=== PATIENT | female | born 1975 | race Caucasian/White ===

== ENCOUNTER 2017-01-24 16:35 | Emergency (ER) | payer BC ==
[2017-01-24] MEDS ORDERED: LORazepam 2 MG/ML MDV ONE (16:41)
[2017-01-24] MEDS ORDERED: LORazepam 2 MG/ML MDV IVPUSH STA (16:48)
--- NOTE | 2017-01-24 17:13 | EDM.PDOC ---
[id number] 16:35 Source: Reports: Patient, Family History Limitations: Reports: Other (anxious) - History of Present Illness INITIAL COMMENTS - FREE TEXT/NARRATIVE: 41 years old w f with a h/o of "walking pneumonia", anxiety; she was on cipro, last dose today. She was seen at her clinic today and a CT Chest was ordered at the clinic for which the pt came to RAD department for an angiogram chest to be done. 2 weeks ago, all her labs were "normal". While the was at the RAD department, she suddenly was stating shaking, uncoordinated, diffuse. Pt was receiving a Duoneb at the clinic UTILIZATION MANAGEMENT MANAGER to the ed. Pt was hyperventilating. Earlier, she stated to have left sided CP which subsided UTILIZATION MANAGEMENT MANAGER. No N/V/D Her vitals were nl on arrival. Symptom Onset Date: 01/24/17 Symptom Onset Time: 16:00 Timing/Duration: Reports: Hour(s): Location (Neuro Complaint): Reports: generalized (shaking) Quality (Neuro Complaint): Reports: tingling Severity: moderate Improves with: Reports: Other (calm her down) Worsens with: Reports: Breathing, Medication - Related Data Allergies/ADRs: Allergies Allergy/AdvReac Type Severity Reaction Status Date / Time No Known Allergies Allergy Verified 01/24/17 17:33 Home Meds: Home Meds Fluticasone Propionate [Flovent] 2 puff INH DAILY 06/03/15 [History] LORazepam 0.5 mg PO BID PRN 06/03/15 [History] Olopatadine [Pataday 0.2% Ophth Soln] 1 drop EYEBOTH BEDTIME 06/03/15 [History] Calcium Carbonate/Vitamin D3 [Calcium 600 + Vit D Softgel] 1 each PO BID [History] Escitalopram [Lexapro] 10 mg PO BID 01/24/17 [History] Social & Family History - Tobacco Use Smoking Status *Q: Never Smoker - Recreational Drug Use Recreational Drug Use: No ED ROS GENERAL - Review of Systems Review Of Systems: See Below Constitutional: Reports: other (anxious) HEENT: Reports: No symptoms Respiratory: Reports: Shortness of Breath Cardiovascular: Reports: No symptoms Endocrine: Reports: no symptoms GI/Abdominal: Reports: No symptoms : Reports: no symptoms Musculoskeletal: Reports: no symptoms Skin: Reports: no symptoms Neurological: Reports: No Symptoms Psychiatric: Reports: No symptoms Hematologic/Lymphatic: Reports: no symptoms Immunologic: Reports: no symptoms ED EXAM, NEURO - Physical Exam Exam: See Below Exam Limited By: Respiratory distress (anxiety) General Appearance: alert, anxious, mild distress Eye Exam: bilateral eye: abnormal EOM Ears: normal external exam, normal canal Nose: normal inspection Throat/Mouth: Normal inspection, Normal lips, Normal teeth, Normal gums, Normal oropharynx, Normal voice, No airway compromise Head Exam: atraumatic, normocephalic Neck: normal inspection, supple, non-tender, full range of motion Respiratory/Chest: lungs clear, normal breath sounds, no accessory muscle use, chest non-tender Cardiovascular: normal peripheral pulses, regular rate, rhythm, no edema, no gallop, no JVD GI/Abdominal: normal bowel sounds, soft, non tender, no organomegaly, no distention, no abnormal bruit (Female) Exam: Deferred Rectal (Female) Exam: Deferred Neurological: alert, normal mood/affect, normal dorsiflexion, CN II-XII intact Back Exam: normal inspection, full range of motion Extremities: normal inspection, normal range of motion, non-tender, no pedal edema Psychiatric: anxious Skin Exam: Warm, Dry, Intact, Normal color, No rash EKG INTERPRETATION EKG Date: 01/24/17 Time: 17:25 Rhythm: NSR Rate (beats/min): 66 [place]: normal P-wave: present QRS: normal ST-T: normal QT: normal Comparison: NA - no prior EKG Course - Vital Signs Text/Narrative:: 41 years old w f with a h/o of "walking pneumonia", anxiety; she was on cipro, last dose today. She was seen at her clinic today and a CT Chest was ordered at the clinic for which the pt came to RAD department for an angiogram chest to be done. 2 weeks ago, all her labs were "normal". While the was at the RAD department, she suddenly was stating shaking, uncoordinated, diffuse. Pt was receiving a Duoneb at the clinic UTILIZATION MANAGEMENT MANAGER to the ed. Pt was hyperventilating. Earlier, she stated to have left sided CP which subsided UTILIZATION MANAGEMENT MANAGER. No N/V/D Her vitals were nl on arrival. PE: anxious, hyperventilating Labs: Pos for opiates. D Dimer, Cardiac W/U was neg. Imaging: CT chest R/O DVT, ordered at the [facility], was neg for PE. it showed mild gen congestion, nonspecific, however, as per Dr. Vaughan, official report is pending Impression: gen lung infiltrate, mild, cause not determined. Anxiety, pos UDS for opioids. Tx: At[place]ovan Reexam: Improved Plan: D/C with instructions. Last Recorded V/S: Last Vital Signs Temp 36.4 C 01/24/17 16:35 Pulse 74 01/24/17 18:40 Resp 16 01/24/17 18:40 BP 98/53 L 01/24/17 18:40 Pulse Ox 96 01/24/17 18:40 - Orders/Labs/Meds Labs: Laboratory Tests 01/24/17 01/24/17 01/24/17 Range/Units 16:55 16:55 16:55 WBC 8.9 (4.5-12.0) X10-3/uL RBC 4.84 (3.23-5.20) x10(6)uL Hgb 14.0 (11.5-15.5) g/dL Hct 41.7 (30.0-51.3) % MCV 86.2 (80-96) fL MCH 28.9 (27.7-33.6) pg MCHC 33.6 (32.2-35.4) g/dL RDW 11.5 (11.5-15.5) % Plt Count 309 (125-369) X10(3)uL MPV 8.5 (7.4-10.4) fL Neut % (Auto) 47.4 (46-82) % Lymph % (Auto) 45.1 H (13-37) % [place] % (Auto) 5.5 (4-12) % Eos % (Auto) 2 (1.0-5.0) % Baso % (Auto) 1 (0-2) % Neut # (Auto) 4.3 (1.6-8.3) # Lymph # (Auto) 4.0 (0.6-5.0) # [place] # (Auto) 0.5 (0.0-1.3) # Eos # (Auto) 0.1 (0.0-0.8) # Baso # (Auto) 0.0 (0.0-0.2) # D-Dimer, Quantitative (100-400) ng/mL Sodium 139 (135-145) mmol/L Potassium 3.5 (3.5-5.3) mmol/L Chloride 105 (100-110) mmol/L Carbon Dioxide 19 L (23-29) mmol/L BUN 17 (5-20) mg/dL Creatinine 0.9 (0.6-1.3) mg/dL Est Cr Clr Drug Dosing 82.14 mL/min Estimated GFR (MDRD) > 60 (>60) BUN/Creatinine Ratio 18.9 (9-20) Glucose 98 (80-116) mg/dL Calcium 9.0 (8.6-10.2) mg/dL Creatine Kinase (60-160) IU/L B-Natriuretic Peptide 6 (0-100) pg/mL TSH, Ultra Sensitive (0.4-5.5) nlU/mL Urine Color (YELLOW) Urine Appearance (CLEAR) Urine pH (5.0-6.5) Ur Specific [place] (1.010-1.025) Urine Protein (NEGATIVE) mg/dL Urine Glucose (UA) (NEGATIVE) mg/dL Urine Ketones (NEGATIVE) mg/dL Urine Occult Blood (NEGATIVE) Urine Nitrite (NEGATIVE) Urine Bilirubin (NEGATIVE) Urine Urobilinogen (NEGATIVE) mg/dL Ur Leukocyte Esterase (NEGATIVE) Urine RBC (0) Urine WBC (0) Ur Squamous Epith Cells (NS,R,O) Urine Bacteria (NS) Urine HCG, Qual (NEGATIVE) Urine Opiates Screen (NEGATIVE) Ur Oxycodone Screen (NEGATIVE) Ur Propoxyphene Screen (NEGATIVE) Ur Barbituates Screen (NEGATIVE) Ur Tricyclics Screen (NEGATIVE) Ur Phencyclidine Scrn (NEGATIVE) Ur Amphetamine Screen (NEGATIVE) Urine MDMA Screen (NEGATIVE) U Benzodiazepines Scrn (NEGATIVE) U Cocaine Metab Screen (NEGATIVE) U Marijuana (THC) Screen (NEGATIVE) Ethyl Alcohol (<0.01) % 01/24/17 01/24/17 01/24/17 Range/Units 16:55 16:55 16:55 WBC (4.5-12.0) X10-3/uL RBC (3.23-5.20) x10(6)uL Hgb (11.5-15.5) g/dL Hct (30.0-51.3) % MCV (80-96) fL MCH (27.7-33.6) pg MCHC (32.2-35.4) g/dL RDW (11.5-15.5) % Plt Count (125-369) X10(3)uL MPV (7.4-10.4) fL Neut % (Auto) (46-82) % Lymph % (Auto) (13-37) % [place] % (Auto) (4-12) % Eos % (Auto) (1.0-5.0) % Baso % (Auto) (0-2) % Neut # (Auto) (1.6-8.3) # Lymph # (Auto) (0.6-5.0) # [place] # (Auto) (0.0-1.3) # Eos # (Auto) (0.0-0.8) # Baso # (Auto) (0.0-0.2) # D-Dimer, Quantitative < 100 L (100-400) ng/mL Sodium (135-145) mmol/L Potassium (3.5-5.3) mmol/L Chloride (100-110) mmol/L Carbon Dioxide (23-29) mmol/L BUN (5-20) mg/dL Creatinine (0.6-1.3) mg/dL Est Cr Clr Drug Dosing mL/min Estimated GFR (MDRD) (>60) BUN/Creatinine Ratio (9-20) Glucose (80-116) mg/dL Calcium (8.6-10.2) mg/dL Creatine Kinase (60-160) IU/L B-Natriuretic Peptide (0-100) pg/mL TSH, Ultra Sensitive 2.25 (0.4-5.5) nlU/mL Urine Color (YELLOW) Urine Appearance (CLEAR) Urine pH (5.0-6.5) Ur Specific [place] (1.010-1.025) Urine Protein (NEGATIVE) mg/dL Urine Glucose (UA) (NEGATIVE) mg/dL Urine Ketones (NEGATIVE) mg/dL Urine Occult Blood (NEGATIVE) Urine Nitrite (NEGATIVE) Urine Bilirubin (NEGATIVE) Urine Urobilinogen (NEGATIVE) mg/dL Ur Leukocyte Esterase (NEGATIVE) Urine RBC (0) Urine WBC (0) Ur Squamous Epith Cells (NS,R,O) Urine Bacteria (NS) Urine HCG, Qual (NEGATIVE) Urine Opiates Screen (NEGATIVE) Ur Oxycodone Screen (NEGATIVE) Ur Propoxyphene Screen (NEGATIVE) Ur Barbituates Screen (NEGATIVE) Ur Tricyclics Screen (NEGATIVE) Ur Phencyclidine Scrn (NEGATIVE) Ur Amphetamine Screen (NEGATIVE) Urine MDMA Screen (NEGATIVE) U Benzodiazepines Scrn (NEGATIVE) U Cocaine Metab Screen (NEGATIVE) U Marijuana (THC) Screen (NEGATIVE) Ethyl Alcohol < 0.01 (<0.01) % 01/24/17 01/24/17 01/24/17 Range/Units 16:55 17:20 17:20 WBC (4.5-12.0) X10-3/uL RBC (3.23-5.20) x10(6)uL Hgb (11.5-15.5) g/dL Hct (30.0-51.3) % MCV (80-96) fL MCH (27.7-33.6) pg MCHC (32.2-35.4) g/dL RDW (11.5-15.5) % Plt Count (125-369) X10(3)uL MPV (7.4-10.4) fL Neut % (Auto) (46-82) % Lymph % (Auto) (13-37) % [place] % (Auto) (4-12) % Eos % (Auto) (1.0-5.0) % Baso % (Auto) (0-2) % Neut # (Auto) (1.6-8.3) # Lymph # (Auto) (0.6-5.0) # [place] # (Auto) (0.0-1.3) # Eos # (Auto) (0.0-0.8) # Baso # (Auto) (0.0-0.2) # D-Dimer, Quantitative (100-400) ng/mL Sodium (135-145) mmol/L Potassium (3.5-5.3) mmol/L Chloride (100-110) mmol/L Carbon Dioxide (23-29) mmol/L BUN (5-20) mg/dL Creatinine (0.6-1.3) mg/dL Est Cr Clr Drug Dosing mL/min Estimated GFR (MDRD) (>60) BUN/Creatinine Ratio (9-20) Glucose (80-116) mg/dL Calcium (8.6-10.2) mg/dL Creatine Kinase 67 (60-160) IU/L B-Natriuretic Peptide (0-100) pg/mL TSH, Ultra Sensitive (0.4-5.5) nlU/mL Urine Color (YELLOW) Urine Appearance (CLEAR) Urine pH (5.0-6.5) Ur Specific [place] (1.010-1.025) Urine Protein (NEGATIVE) mg/dL Urine Glucose (UA) (NEGATIVE) mg/dL Urine Ketones (NEGATIVE) mg/dL Urine Occult Blood (NEGATIVE) Urine Nitrite (NEGATIVE) Urine Bilirubin (NEGATIVE) Urine Urobilinogen (NEGATIVE) mg/dL Ur Leukocyte Esterase (NEGATIVE) Urine RBC (0) Urine WBC (0) Ur Squamous Epith Cells (NS,R,O) Urine Bacteria (NS) Urine HCG, Qual Negative (NEGATIVE) Urine Opiates Screen Positive H (NEGATIVE) Ur Oxycodone Screen Negative (NEGATIVE) Ur Propoxyphene Screen Negative (NEGATIVE) Ur Barbituates Screen Negative (NEGATIVE) Ur Tricyclics Screen Negative (NEGATIVE) Ur Phencyclidine Scrn Negative (NEGATIVE) Ur Amphetamine Screen Negative (NEGATIVE) Urine MDMA Screen Negative (NEGATIVE) U Benzodiazepines Scrn Negative (NEGATIVE) U Cocaine Metab Screen Negative (NEGATIVE) U Marijuana (THC) Screen Negative (NEGATIVE) Ethyl Alcohol (<0.01) % 01/24/17 Range/Units 17:20 WBC (4.5-12.0) X10-3/uL RBC (3.23-5.20) x10(6)uL Hgb (11.5-15.5) g/dL Hct (30.0-51.3) % MCV (80-96) fL MCH (27.7-33.6) pg MCHC (32.2-35.4) g/dL RDW (11.5-15.5) % Plt Count (125-369) X10(3)uL MPV (7.4-10.4) fL Neut % (Auto) (46-82) % Lymph % (Auto) (13-37) % [place] % (Auto) (4-12) % Eos % (Auto) (1.0-5.0) % Baso % (Auto) (0-2) % Neut # (Auto) (1.6-8.3) # Lymph # (Auto) (0.6-5.0) # [place] # (Auto) (0.0-1.3) # Eos # (Auto) (0.0-0.8) # Baso # (Auto) (0.0-0.2) # D-Dimer, Quantitative (100-400) ng/mL Sodium (135-145) mmol/L Potassium (3.5-5.3) mmol/L Chloride (100-110) mmol/L Carbon Dioxide (23-29) mmol/L BUN (5-20) mg/dL Creatinine (0.6-1.3) mg/dL Est Cr Clr Drug Dosing mL/min Estimated GFR (MDRD) (>60) BUN/Creatinine Ratio (9-20) Glucose (80-116) mg/dL Calcium (8.6-10.2) mg/dL Creatine Kinase (60-160) IU/L B-Natriuretic Peptide (0-100) pg/mL TSH, Ultra Sensitive (0.4-5.5) nlU/mL Urine Color Yellow (YELLOW) Urine Appearance Clear (CLEAR) Urine pH 8.0 H (5.0-6.5) Ur Specific [place] 1.005 L (1.010-1.025) Urine Protein Negative (NEGATIVE) mg/dL Urine Glucose (UA) Normal (NEGATIVE) mg/dL Urine Ketones Negative (NEGATIVE) mg/dL Urine Occult Blood Negative (NEGATIVE) Urine Nitrite Negative (NEGATIVE) Urine Bilirubin Negative (NEGATIVE) Urine Urobilinogen Normal (NEGATIVE) mg/dL Ur Leukocyte Esterase Negative (NEGATIVE) Urine RBC 0-5 (0) Urine WBC 0-5 (0) Ur Squamous Epith Cells Occasional (NS,R,O) Urine Bacteria Rare H (NS) Urine HCG, Qual (NEGATIVE) Urine Opiates Screen (NEGATIVE) Ur Oxycodone Screen (NEGATIVE) Ur Propoxyphene Screen (NEGATIVE) Ur Barbituates Screen (NEGATIVE) Ur Tricyclics Screen (NEGATIVE) Ur Phencyclidine Scrn (NEGATIVE) Ur Amphetamine Screen (NEGATIVE) Urine MDMA Screen (NEGATIVE) U Benzodiazepines Scrn (NEGATIVE) U Cocaine Metab Screen (NEGATIVE) U Marijuana (THC) Screen (NEGATIVE) Ethyl Alcohol (<0.01) % Meds: Medications Discontinued Medications Generic Name Dose Route Start Last Admin Trade Name Freq PRN Reason Stop Dose Admin Lorazepam Confirm 01/24/17 16:41 01/24/17 18:06 Ativan Administered 01/24/17 16:42 Not Given Dose 2 mg .ROUTE .STK-MED ONE Lorazepam 1 mg 01/24/17 16:48 01/24/17 18:07 Ativan IVPUSH 01/24/17 16:49 1 mg ONETIME STA Administration Departure - Departure Time of Disposition: 18:21 Disposition: Home, Self-Care 01 Condition: good Clinical Impression: Anxiety, Lung infiltrate on CT Instructions: Shortness of Breath, [id number], Panic Attacks, [id number] Referrals: Jeanine Jauregui NP [Primary Care Provider] - Forms: ED Department Discharge Additional Instructions: Please follow up with your PMD/Pulmologist, please come back if your symptoms worsen acutely.
[2017-01-24 19:13] VITALS: BP 98/53
== END 2017-01-24 18:55 | disposition home or self-care (01) ==
LOC: FB.ED 16:35
DX: F41.9 Anxiety disorder, unspecified (principal); R91.8 Other nonspecific abnormal finding of lung field; Z79.899 Other long term (current) drug therapy; R06.02 Shortness of breath; Z86.711 Personal history of pulmonary embolism; Z87.59 Personal history of other complications of pregnancy, childbirth and the puerperium
CPT/HCPCS: 36415; 71275; 80048; 80305; 81001; 81025; 82550; 83880; 84443; 85025; 85379; 93005; 96374; 99285; G0480; J2060; Q9967

== ENCOUNTER 2018-06-04 08:20 | Emergency (ER) | payer BC ==
[2018-06-04] MEDS ORDERED: Amoxicillin 500 MG Cap PO ONE (08:49)
--- NOTE | 2018-06-04 08:52 | EDM.PDOC ---
ED HPI GENERAL MEDICAL PROBLEM - General Chief Complaint: ENT Problem Stated Complaint: DOUBLE EAR PAIN Time Seen by Provider: 06/04/18 08:45 Source of Information: Reports: Patient History Limitations: Reports: No Limitations - History of Present Illness INITIAL COMMENTS - FREE TEXT/NARRATIVE: Niki complains of ear pain bilateral, that started yesterday. She also has upper respiratory symptoms including sore throat and congestion that started on . Last night the pain was associated with a low-grade fever. She denies any cough Bilateral ears Pain Score (Numeric/FACES): 6 - Related Data Allergies Allergy/AdvReac Type Severity Reaction Status Date / Time No Known Allergies Allergy Verified 06/04/18 08:32 Home Meds: Home Meds Fluticasone Propionate [Flovent] 2 puff INH DAILY 06/03/15 [History] LORazepam 0.5 mg PO BID PRN 06/03/15 [History] Olopatadine [Pataday 0.2% Ophth Soln] 1 drop EYEBOTH BEDTIME 06/03/15 [History] Calcium Carbonate/Vitamin D3 [Calcium 600 + Vit D Softgel] 1 each PO BID [History] Escitalopram [Lexapro] 10 mg PO BID 01/24/17 [History] Phentermine HCl 0.5 tab PO DAILY 06/04/18 [History] Topiramate 75 mg 1800 06/04/18 [History] Past Medical History Cardiovascular History: Reports: Blood Clots/VTE/DVT, Other (See Below) Other Cardiovascular History: hx PE Respiratory History: Reports: PE Other Respiratory History: recent dx of pneumonia Genitourinary History: Reports: None FLYER REPAIRER History: Reports: Other FLYER REPAIRER History: [id number] Musculoskeletal History: Reports: Fracture Other Musculoskeletal History: hx fx L wrist Neurological History: Reports: Migraines Psychiatric History: Reports: Anxiety, Depression Endocrine/Metabolic History: Reports: Obesity/BMI 30+ - Infectious Disease History Infectious Disease History: Reports: Chicken Pox - Past Surgical History HEENT Surgical History: Reports: Oral Surgery GI Surgical History: Reports: Appendectomy, Bariatric Procedure Female Surgical History: Reports: Breast Reduction, Other (See Below) Other Female Surgeries/Procedures: cyst removed from ovary Musculoskeletal Surgical History: Reports: Arthroscopic Knee Other Musculoskeletal Surgeries/Procedures:: L knee scope Social & Family History - Family History Family Medical History: Noncontributory - Tobacco Use Smoking Status *Q: Never Smoker - Caffeine Use Caffeine Use: Reports: Coffee - Recreational Drug Use Recreational Drug Use: No ED ROS ENT - Review of Systems Review Of Systems: ROS reveals no pertinent complaints other than HPI. ED EXAM, ENT - Physical Exam Exam: See Below Exam Limited By: No Limitations General Appearance: Alert Ears: Normal External Exam, Normal Canal, TM Bulging (R), TM Dullness. No: TM Vesicles, TM Obscured by Cerumen Nose: Normal Inspection, Nasal Discharge Mouth/Throat: Normal Inspection Head: Atraumatic Respiratory/Chest: No Respiratory Distress, Lungs Clear Course - Vital Signs Last Recorded V/S: Last Vital Signs Temp 98.5 F 06/04/18 08:25 Pulse 83 06/04/18 08:25 Resp 18 06/04/18 08:25 BP 134/88 06/04/18 08:25 Pulse Ox 99 06/04/18 08:25 Departure - Departure Time of Disposition: 08:50 Disposition: Home, Self-Care 01 Clinical Impression: Otitis media - Discharge Information Referrals: Jeanine Jauregui NP [Primary Care Provider] - - Problem List & Annotations (1) Otitis media SNOMED Code(s): 84970440 Code(s): H66.90 - OTITIS MEDIA, UNSPECIFIED, UNSPECIFIED EAR Status: Acute Qualifiers: Otitis media type: suppurative Laterality: right Spontaneous tympanic membrane rupture: without spontaneous rupture - Problem List Review Problem List Initiated/Reviewed/Updated: Yes - Assessment/Plan Plan: Amoxil 500 mg TID. Supportive therapy with fluids,NSAIDs or Tylenol
[2018-06-04 09:09] VITALS: BP 135/96
== END 2018-06-04 09:01 | disposition home or self-care (01) ==
LOC: FB.ED 08:20
DX: H66.93 Otitis media, unspecified, bilateral (principal); Z79.899 Other long term (current) drug therapy
CPT/HCPCS: 99282; A9270-GY

== ENCOUNTER 2023-04-12 06:19 | Day surgery (SDC) | payer BC ==
[~2023-04-12 06:19] MED LIST: Lactated Ringers 1,000 ML IV SCH; Sodium Chloride 0.9% 10 ML Syringe FLUSH PRN
[2023-04-12] MEDS ORDERED: Propofol 200 MG/20 ML SDV IV ONE (06:20)
[2023-04-12] MEDS ORDERED: Glycopyrrolate 0.2 MG/ML 5 ML MDV IV ONE (06:20)
[2023-04-12] MEDS ORDERED: Midazolam 1 MG/ML 2 ML SDV IV ONE (06:20)
[2023-04-12] MEDS ORDERED: Lidocaine 2% 5 ML SDV IV ONE (06:20)
[2023-04-12] MEDS ORDERED: Ketamine 500 mg/10 ML MDV IV ONE (06:20)
[2023-04-12] MEDS ORDERED: Ondansetron 4 MG/2 ML SDV IVPUSH ONE (06:20)
[2023-04-12] MEDS ORDERED: Simethicone Drops 40 MG/0.6 ML 30 ML Bottle ONE (07:27)
[2023-04-12 08:56] VITALS: PULSE 95
[2023-04-12 09:20] VITALS: BP 142/88
== END 2023-04-12 09:14 | disposition home or self-care (01) ==
LOC: FB.SDS 06:19
PROVIDERS: ATTEND Surgery
DX: Z12.11 Encounter for screening for malignant neoplasm of colon (principal); F41.1 Generalized anxiety disorder; G47.33 Obstructive sleep apnea (adult) (pediatric); Z80.0 Family history of malignant neoplasm of digestive organs; Z79.899 Other long term (current) drug therapy; Z88.5 Allergy status to narcotic agent; Z88.8 Allergy status to other drugs, medicaments and biological substances; Z98.890 Other specified postprocedural states; Z90.49 Acquired absence of other specified parts of digestive tract
CPT/HCPCS: 00812; 45378; A9270; J2250; J2405; J2704; J3490; J7120